=== PATIENT | male | born 1955 | race Caucasian/White ===

== ENCOUNTER 2020-01-11 09:59 | Inpatient (IN) | payer SELFPAY ==
[2020-01-11] MEDS ORDERED: Iopamidol-370 76% 500 ML 1 ML ONE (10:21)
[2020-01-11 10:31] LABS: #Basophils 0.1 thou/uL (0.0-0.2); #Lymphocytes 0.7 thou/uL (1.20-3.40); #Monocytes 1.8 thou/uL (0.11-0.59); #Neutrophils 13.2 thou/uL (1.40-6.50); %Basophils 0.5 % (0.0-1.0); %Eosinophils 0.1 % (0.0-10.0); %Lymphocytes 4.2 % (21.0-51.0); %Monocytes 11.3 % (0.0-10.0); %Neutrophils 84.1 % (42.0-75.0); Hemoglobin 15.1 g/dL (14.0-18.0); Mean Corpuscular HGB CONC 32.8 g/dL (32.0-36.0); Mean Corpuscular Hemoglobin 30.9 pg (27.0-31.0); Mean Corpuscular Volume 94.2 fL (78.0-98.0); Mean Platelet Volume 8.2 fL (7.4-10.4); Platelet Count 123 thou/uL (130-400); RBC Distribution Width 12.1 % (11.5-14.5); Red Blood Cell (RBC) Count 4.89 mill/uL (4.70-6.10); White Blood Cell (WBC) Count 15.7 thou/uL (4.8-10.8)
[2020-01-11 10:47] LABS: ALT (SGPT) 38 U/L (8-55); AST (SGOT) 35 U/L (5-34); Albumin 3.7 g/dL (3.4-4.8); Alkaline Phosphatase 85 U/L (40-110); Anion Gap 15 mmol/L (10-20); BUN (Urea Nitrogen) 10 mg/dL (8.4-25.7); Bilirubin, Total 0.7 mg/dL (0.2-1.2); Calc. Creatinine Clearance 0 mL/min (70-130); Calcium 8.8 mg/dL (7.8-10.44); Carbon Dioxide 21 mmol/L (23-31); Chloride 90 mmol/L (98-107); Estimated GFR-MDRD Greater than 90; Glucose 137 mg/dL (80-115); Potassium 3.1 mmol/L (3.5-5.1); Protein, Total 6.7 g/dL (5.8-8.1); Sodium 123 mmol/L (136-145)
[2020-01-11 11:05] LABS: Bacteria/HPF 4+ HPF (None Seen); Bilirubin Negative (Negative); Blood, Urine 3+ (Negative); Clarity Turbid (Clear); Glucose, Urine (Dipstick) Normal (Negative); Leukocyte 500 Leu/uL (Negative); Nitrite 2+ (Negative); Protein, Urine (Dipstick) 30 mg/dL (Neg-Trace); RBC/HPF 21-50 HPF (0-3); Squamous Epithelial 0-3 HPF (0-3); Urobilinogen Normal mg/dL (Less than 2); WBC/HPF Greater than 50 HPF (0-3)
[2020-01-11] MEDS ORDERED: cefTRIAXone\\ROCEPHIN 1 GM VIAL ONE (11:09)
--- NOTE | 2020-01-11 11:13 | RAD ---
Exam: Chest one view HISTORY:Dysuria with hematuria. Lower abdominal pain. Comparison: 04/19/2014 FINDINGS: Cardiac silhouette: Normal Aorta: Atherosclerosis Pulmonary vessels: Normal Costophrenic angles: Clear LUNGS: Hyperinflation with chronic lung parenchymal changes. Pneumothorax: None Osseous abnormalities: None IMPRESSION: 1. Chronic lung parenchymal changes. Hyperinflation. COPD. 2. Atherosclerosis
[2020-01-11] MEDS ORDERED: Ondansetron PF 4 MG/2 ML Vial ONE (12:12)
[2020-01-11] MEDS ORDERED: Morphine 4 MG/ML VIAL ONE (12:13)
[2020-01-11] MEDS ORDERED: Vancomycin 1 GM/200 ML BAG ONE (12:30)
--- NOTE | 2020-01-11 14:21 | CT ---
EXAM: CT ABDOMEN AND PELVIS HISTORY: Penile pain, starting yesterday. Serious pain across the top of the penis. COMPARISON: None. Procedure: Multiple contiguous axial images were obtained and a CT of the abdomen and pelvis with IV contrast. C oronal reformats were performed. FINDINGS: Lower Chest: within normal limits. Vessels: Atherosclerosis of a nonaneurysmal aorta Heart: Normal heart size. Small amount of pericardial fluid Abdomen: Portal vein:Patent Gallbladder: No calcified gallstones. Normal caliber wall. Liver: Multiple subcentimeter hypodensities which are too small to characterize but may represent cys ts. No enhancing masses within the liver. Pancreas: within normal limits. Spleen: within normal limits. Adrenals: Appropriate enhancement of the right adrenal gland. Indeterminate 1.7 x 1.2 cm solid enhanc ing nodule in the left adrenal gland. Kidneys: Symmetric enhancement. No obstructive uropathy. There is mild symmetric enhancement involvin g the ureters bilaterally. Peritoneum: No ascites or free air, no fluid collection. Bowel: Limited evaluation due to the lack of oral contrast administration. No evidence of bowel obstr uction. Ileocecal junction is unremarkable. Normal caliber appendix. Scattered fecal material in a nondistended, nondilated colon. Diverticulosis. No evidence of diverticulitis. Mesentery and Retroperitoneum: No enlarged mesenteric or retroperitoneal lymph nodes. Abdominal Wall: within normal limits. Pelvis: Reproductive Organs: Mild enlarged prostate gland without significant mass effect upon the urinary bl adder Pelvis: No mass, lymphadenopathy, free air or free fluid. Bladder: Mild mucosal enhancement. Correlate for cystitis with possible retrograde/ascending urinary tract infection Bones: within normal limits. IMPRESSION: 1. Mucosal enhancement involving the urinary bladder as well as ureter suggesting ascending urinary t ract infection. Correlate with urinalysis. No evidence of pyelonephritis. 2. Normal caliber appendix. 3. Diverticulosis, without evidence of diverticulitis 4. Indeterminate left adrenal nodule. Nonemergent abdomen MRI is recommended
[2020-01-11] MEDS ORDERED: Ondansetron PF 4 MG/2 ML Vial IVP PRN (15:11)
[2020-01-11] MEDS ORDERED: Potassium Chloride 20 MEQ TAB PO SCH ×2 (15:15→18:00)
[2020-01-11] MEDS: Sodium Chloride 0.9% 1,000 ML IV SCH (18:06)
[2020-01-11] MEDS: traMADol HCl 50 MG TAB PO PRN (21:27)
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
[2020-01-12] MEDS: Sodium Chloride 0.9% 1,000 ML IV SCH ×4 (02:08→17:35)
[2020-01-12 04:59] LABS: Band 20 % (5-11); Hypochromia SLIGHT = 6-15 cells (100X) (0-5/hpf); Lymphocytes 7 % (21-51); MDiff Complete? YES; Mean Corpuscular HGB CONC 33.4 g/dL (32.0-36.0); Mean Corpuscular Hemoglobin 31.7 pg (27.0-31.0); Mean Corpuscular Volume 94.9 fL (78.0-98.0); Mean Platelet Volume 8.7 fL (7.4-10.4); Monocytes 9 % (0-10); Neutrophil 63 % (42-75); Platelet Count 127 thou/uL (130-400); Platelet Morphology Comment Appears Adequate; RBC Distribution Width 12.4 % (11.5-14.5); Reactive Lymphocytes 1 % (0-10); Red Blood Cell (RBC) Count 4.11 mill/uL (4.70-6.10); White Blood Cell (WBC) Count 12.3 thou/uL (4.8-10.8)
[2020-01-12 05:12] LABS: Anion Gap 12 mmol/L (10-20); BUN (Urea Nitrogen) 9 mg/dL (8.4-25.7); Calc. Creatinine Clearance 118 mL/min (70-130); Calcium 8.3 mg/dL (7.8-10.44); Carbon Dioxide 19 mmol/L (23-31); Chloride 99 mmol/L (98-107); Estimated GFR-MDRD Greater than 90; Glucose 95 mg/dL (80-115); Potassium 3.5 mmol/L (3.5-5.1); Sodium 126 mmol/L (136-145)
[2020-01-12] MEDS: Enoxaparin Sodium 40 MG/0.4 ML SYRINGE SC SCH (08:54)
[2020-01-12] MEDS: traMADol HCl 50 MG TAB PO PRN ×2 (08:54→17:37)
[2020-01-12] MEDS: cefTRIAXone\\ROCEPHIN 2 GM in Sodium Chloride 0.9% 100 ML IVPB SCH (11:17)
--- NOTE | 2020-01-12 14:16 | PDOC.HOSPP ---
- Subjective Encounter Date: 01/12/20 Subjective: Feels better. - Objective Vital Signs & Weight: Vital Signs (12 hours) Temp Pulse Resp BP BP Pulse Ox 01/12/20 12:00 135/85 01/12/20 11:15 98.3 F 91 16 135/85 96 01/12/20 08:47 98.7 F 99 16 146/86 H 95 01/12/20 08:00 146/86 H 95 01/12/20 03:26 98.3 F 103 H 18 132/82 94 L Weight Weight 155 lb 9.6 oz I&O: 01/11/20 01/12/20 01/13/20 06:59 06:59 06:59 Intake Total 2760 Balance 2760 Result Diagrams: 01/12/20 04:11 01/12/20 04:11 Hospitalist ROS - Medication Medications: Active Medications Generic Name Dose Route Start Last Admin Trade Name Freq PRN Reason Stop Dose Admin Enoxaparin Sodium 40 mg 01/12/20 09:00 01/12/20 08:54 Lovenox SC 40 mg 0900 VLADIMIR Administration Sodium Chloride 1,000 mls @ 150 mls/hr 01/11/20 15:15 01/12/20 08:58 Normal Saline 0.9% IV 1,000 mls .[id number] VLADIMIR Administration Ceftriaxone Sodium 2 gm/ 100 mls @ 200 mls/hr 01/12/20 11:00 01/12/20 11:17 Sodium Chloride IVPB 100 mls 1100 VLADIMIR Administration Tramadol HCl 50 mg 01/11/20 15:10 01/12/20 08:54 Ultram PO 50 mg Q6H PRN Administration pain - Exam General Appearance: awake alert ENT: normocephalic atraumatic Neck: supple Heart: RRR Respiratory: normal chest expansion, no tachypnea Extremities: no cyanosis, no clubbing, no edema Neurological: cranial nerve grossly intact, no focal deficits Hosp A/P (1) Sepsis Code(s): A41.9 - SEPSIS, UNSPECIFIED ORGANISM Status: Acute (2) UTI (urinary tract infection) Status: Acute (3) E coli bacteremia Code(s): R78.81 - BACTEREMIA; B96.20 - UNSP ESCHERICHIA COLI THE CAUSE OF DISEASES CLASSD ELSWHR Status: Acute - Plan Sepsis due to UTI caused by E. coli. Bactremia is present. Leukocytosis and pain are improving. Continue IV ceftriaxone and follow culture results.
[2020-01-12 14:23] VITALS: BMI 22.9
[2020-01-13] MEDS: Sodium Chloride 0.9% 1,000 ML IV SCH ×2 (01:06→08:10)
[2020-01-13 04:24] LABS: Band 11 % (5-11); Hemoglobin 12.4 g/dL (14.0-18.0); Lymphocytes 14 % (21-51); MDiff Complete? YES; Mean Corpuscular HGB CONC 33.1 g/dL (32.0-36.0); Mean Corpuscular Hemoglobin 31.5 pg (27.0-31.0); Metamyelocyte 1 % (0-0); Monocytes 18 % (0-10); Neutrophil 56 % (42-75); Platelet Count 149 thou/uL (130-400); Platelet Morphology Comment Appears Adequate; RBC Distribution Width 12.4 % (11.5-14.5); Red Blood Cell (RBC) Count 3.92 mill/uL (4.70-6.10); White Blood Cell (WBC) Count 11.4 thou/uL (4.8-10.8)
[2020-01-13 04:27] LABS: Anion Gap 10 mmol/L (10-20); BUN (Urea Nitrogen) 8 mg/dL (8.4-25.7); Calc. Creatinine Clearance 124 mL/min (70-130); Calcium 7.6 mg/dL (7.8-10.44); Carbon Dioxide 19 mmol/L (23-31); Chloride 101 mmol/L (98-107); Estimated GFR-MDRD Greater than 90; Glucose 84 mg/dL (80-115); Potassium 3.2 mmol/L (3.5-5.1); Sodium 127 mmol/L (136-145)
[2020-01-13 08:17] VITALS: TEMP 97.8
[2020-01-13] MEDS: Enoxaparin Sodium 40 MG/0.4 ML SYRINGE SC SCH (09:26)
[2020-01-13] MEDS: cefTRIAXone\\ROCEPHIN 2 GM in Sodium Chloride 0.9% 100 ML IVPB SCH (12:02)
[2020-01-13 12:18] VITALS: BP 161/96
[2020-01-13 12:34] LABS: HBSAg Index 0.23 S/CO (0-0.99); HIV (1/2) Antibody/Antigen Non-Reactive (NonReactive); Hep B Surf Ag Non-Reactive S/CO (NonReactive)
[2020-01-13 12:37] LABS: Hep C IgG Ab Reflex HepC Qnt (NonReactive); Hep C Index 12.06 S/CO (0-0.79)
--- NOTE | 2020-01-14 05:52 | DIS ---
DATE OF ADMISSION: 01/11/2020 DATE OF DISCHARGE: 01/13/2020 DISCHARGE DIAGNOSES: 1. Sepsis. 2. Urinary tract infection. 3. Escherichia coli bacteremia. DISCHARGE MEDICATIONS: 1. Levofloxacin 750 mg orally daily for 7 days. 2. Atorvastatin 40 mg orally daily. 3. Cilostazol 100 mg orally twice daily. 4. Lisinopril 5 mg orally daily. 5. Tamsulosin 0.4 mg orally daily. HISTORY OF PRESENT ILLNESS AND HOSPITAL COURSE: The patient is a 64-year-old male with past medical history of hypertension, hyperlipidemia, and emphysema, who presented to the hospital with complaints of lower abdominal pain and dysuria. His UA was positive for UTI. He was admitted to the hospital and started on IV antibiotics for UTI with sepsis. His urine and blood cultures grew E. coli sensitive to fluoroquinolones and cephalosporins. He was treated with IV ceftriaxone in the hospital until his sepsis was resolved and the rest of the management will be completed at home with oral Levaquin. Job ID: [id number]
--- NOTE | 2020-01-20 16:39 | EKG ---
Test Reason : Blood Pressure : / mmHG Vent. Rate : 130 BPM Atrial Rate : 130 BPM P-R Int : 132 ms QRS Dur : 092 ms QT Int : 302 ms P-R-T Axes : 076 076 069 degrees QTc Int : 444 ms Sinus tachycardia Possible Left atrial enlargement Septal infarct , age undetermined Possible Lateral infarct , age undetermined Abnormal ECG Confirmed by DANITA CORONEL DO ([id number]), video editor TODD MANJARREZ ([id number] on 01/20/2020 4:39:46 PM Referred By: Confirmed By:DANITA CORONEL DO
[2020-01-21 19:13] LABS: HCV log10 6.029 (.); Hep C PCR-Quant 1070000 IU/mL (.)
== END 2020-01-13 16:05 | disposition home or self-care (01) | DRG 872 ==
LOC: ERS 09:59 → 2NO 15:13
PROVIDERS: ADMIT Internal Medicine; ATTEND Internal Medicine
DX: A41.51 Sepsis due to Escherichia coli [E. coli] (principal); N39.0 Urinary tract infection, site not specified; E78.00 Pure hypercholesterolemia, unspecified; I10 Essential (primary) hypertension; E78.5 Hyperlipidemia, unspecified; J43.9 Emphysema, unspecified; F17.210 Nicotine dependence, cigarettes, uncomplicated; Z88.0 Allergy status to penicillin
CPT/HCPCS: 36415; 71045; 74177; 80048; 80053; 81003; 81015; 83605; 85025; 86803; 87040; 87077; 87086; 87149; 87186; 87340; 87389; 87522; 93005; 96361; 96365; 96375; J0696; J1650; J2270; J2405; J3370; J3490; Q9967

== ENCOUNTER 2022-02-25 11:54 | Outpatient (CLI) | payer MEDICARE, MEDICAID | END 2022-02-25 11:55 | disposition home or self-care (01) | LOC: ULT 11:54 | PROVIDERS: ATTEND Physician Assistant Medical | DX: B18.2 Chronic viral hepatitis C (principal); E87.1 Hypo-osmolality and hyponatremia; F10.20 Alcohol dependence, uncomplicated; R05.9 Cough, unspecified; K76.89 Other specified diseases of liver | CPT/HCPCS: 76705 ==

== ENCOUNTER 2022-05-28 11:32 | Emergency (ER) | payer MEDICARE, MEDICAID ==
[2022-05-28 12:20] LABS: #Eosinphils 0.2 thou/uL (0.0-0.7); #Lymphocytes 1.8 thou/uL (1.20-3.40); #Monocytes 0.6 thou/uL (0.11-0.59); %Basophils 0.6 % (0.0-1.0); %Eosinophils 2.9 % (0.0-10.0); %Lymphocytes 23.8 % (21.0-51.0); %Monocytes 7.6 % (0.0-10.0); %Neutrophils 65.2 % (42.0-75.0); Hemoglobin 16.6 g/dL (14.0-18.0); Mean Corpuscular HGB CONC 33.6 g/dL (32.0-36.0); Mean Corpuscular Hemoglobin 32.3 pg (27.0-31.0); Mean Corpuscular Volume 96.1 fL (78.0-98.0); Mean Platelet Volume 7.4 fL (7.4-10.4); Platelet Count 241 thou/uL (130-400); RBC Distribution Width 12.3 % (11.5-14.5); Red Blood Cell (RBC) Count 5.15 mill/uL (4.70-6.10); White Blood Cell (WBC) Count 7.6 thou/uL (4.8-10.8)
[2022-05-28 12:42] LABS: ALT (SGPT) 14 U/L (8-55); AST (SGOT) 14 U/L (5-34); Albumin 4.3 g/dL (3.4-4.8); Alkaline Phosphatase 93 U/L (40-110); Anion Gap 14 mmol/L (10-20); BUN (Urea Nitrogen) 7 mg/dL (8.4-25.7); Bilirubin, Total 1.1 mg/dL (0.2-1.2); Calc. Creatinine Clearance 0 mL/min (70-130); Calcium 9.6 mg/dL (7.8-10.44); Carbon Dioxide 22 mmol/L (23-31); Chloride 99 mmol/L (98-107); Estimated GFR 96; Glucose 115 mg/dL (80-115); Lipase 13 U/L (8-78); Potassium 4.1 mmol/L (3.5-5.1); Protein, Total 7.3 g/dL (5.8-8.1); Sodium 131 mmol/L (136-145)
[2022-05-28 13:38] LABS: SARS-CoV-2 NAA Rapid Test Not Detected (NotDetected)
== END 2022-05-28 14:14 | disposition home or self-care (01) ==
LOC: ERS 11:32
DX: H53.8 Other visual disturbances (principal); E11.9 Type 2 diabetes mellitus without complications; E78.5 Hyperlipidemia, unspecified; I10 Essential (primary) hypertension; E78.00 Pure hypercholesterolemia, unspecified; F17.210 Nicotine dependence, cigarettes, uncomplicated; Z20.822 Contact with and (suspected) exposure to COVID-19; Z79.84 Long term (current) use of oral hypoglycemic drugs; Z79.899 Other long term (current) drug therapy
CPT/HCPCS: 0240U; 70450; 71045; 80053; 83605; 83690; 84484; 85025; 85379; 87040; 93005; 99284; 36415

== ENCOUNTER 2023-07-29 15:43 | Emergency (ER) | payer MEDICARE, MEDICAID ==
[2023-07-29 16:20] LABS: #Basophils 0.1 thou/uL (0.0-0.2); #Eosinphils 0.1 thou/uL (0.0-0.7); #Monocytes 0.8 thou/uL (0.11-0.59); %Basophils 0.7 % (0.0-1.0); %Eosinophils 1.4 % (0.0-10.0); %Lymphocytes 19.5 % (21.0-51.0); %Monocytes 8.3 % (0.0-10.0); %Neutrophils 69.5 % (42.0-75.0); Hemoglobin 15.5 g/dL (14.0-18.0); Mean Corpuscular HGB CONC 35.2 g/dL (32.0-36.0); Mean Corpuscular Hemoglobin 32.5 pg (27.0-31.0); Mean Corpuscular Volume 92.2 fl (78.0-98.0); Platelet Count 260 10x3/uL (130-400); RBC Distribution Width 12.7 % (11.5-14.5); Red Blood Cell (RBC) Count 4.77 mill/uL (4.70-6.10); White Blood Cell (WBC) Count 10.1 10x3/uL (4.8-10.8)
[2023-07-29 16:48] LABS: Troponin I Less than 0.010 ng/mL (< 0.028)
[2023-07-29 17:39] LABS: Calcium 9.3 mg/dL (7.8-10.44); Chloride 100 mmol/L (98-107); Potassium 4.2 mmol/L (3.5-5.1); Sodium 134 mmol/L (136-145)
[2023-07-29 17:40] LABS: Globulin 3.2 g/dL (2.4-3.5); Glucose 99 mg/dL (80-115); Protein, Total 7.2 g/dL (5.8-8.1)
[2023-07-29 17:42] LABS: Anion Gap 13 mmol/L (10-20); Bilirubin, Total 0.4 mg/dL (0.2-1.2); Carbon Dioxide 25 mmol/L (23-31)
[2023-07-29 17:43] LABS: Alkaline Phosphatase 69 U/L (40-110)
[2023-07-29 17:44] LABS: BUN (Urea Nitrogen) 12 mg/dL (8.4-25.7); Calc. Creatinine Clearance 0 mL/min (70-130); Estimated GFR 100
[2023-07-29 17:45] LABS: AST (SGOT) 15 U/L (5-34)
[2023-07-29 17:46] LABS: ALT (SGPT) 17 U/L (8-55); Lipase 15 U/L (8-78); Magnesium 2.1 mg/dL (1.6-2.6)
[2023-07-29 19:58] LABS: Bacteria/HPF None Seen HPF (None Seen); Bilirubin Negative (Negative); Blood, Urine Negative (Negative); CAUTI Indications for Culture Alt mental st,lethar; Clarity Clear (Clear); Glucose, Urine (Dipstick) Normal (Negative); Ketone, Urine Negative (Negative); Leukocyte Negative Leu/uL (Negative); Nitrite Negative (Negative); Protein, Urine (Dipstick) Negative (Neg-Trace); RBC/HPF 0-3 HPF (0-3); Specific Gravity, Urine 1.014 (1.002-1.036); Squamous Epithelial None Seen HPF (0-3); Urobilinogen Normal mg/dL (Less than 2); WBC/HPF 0-3 HPF (0-3); pH, Urine 6.5 (5.0-9.0)
[2023-07-29 19:59] LABS: Urine Culture Reflex No No
== END 2023-07-29 20:23 | disposition home or self-care (01) ==
LOC: ERS 15:43
DX: Z71.1 Person with feared health complaint in whom no diagnosis is made (principal); E11.9 Type 2 diabetes mellitus without complications; J43.9 Emphysema, unspecified; I10 Essential (primary) hypertension; E78.00 Pure hypercholesterolemia, unspecified; Z79.84 Long term (current) use of oral hypoglycemic drugs; Z79.899 Other long term (current) drug therapy; F17.210 Nicotine dependence, cigarettes, uncomplicated
CPT/HCPCS: 36415; 80053; 81001; 82570; 83690; 83735; 83930; 83935; 84300; 84484; 85025; 93005

== ENCOUNTER 2023-08-06 13:28 | Emergency (ER) | payer MEDICARE, MEDICAID ==
[2023-08-06 15:10] LABS: #Basophils 0.1 thou/uL (0.0-0.2); #Eosinphils 0.1 thou/uL (0.0-0.7); #Monocytes 0.8 thou/uL (0.11-0.59); #Neutrophils 10.6 thou/uL (1.40-6.50); %Basophils 0.7 % (0.0-1.0); %Monocytes 5.9 % (0.0-10.0); Hematocrit 46.1 % (42.0-52.0); Hemoglobin 15.7 g/dL (14.0-18.0); Mean Corpuscular HGB CONC 34.1 g/dL (32.0-36.0); Mean Corpuscular Hemoglobin 32.3 pg (27.0-31.0); Mean Corpuscular Volume 94.9 fl (78.0-98.0); Mean Platelet Volume 9.5 fL (7.4-10.4); Platelet Count 253 10x3/uL (130-400); Red Blood Cell (RBC) Count 4.86 mill/uL (4.70-6.10); White Blood Cell (WBC) Count 13.4 10x3/uL (4.8-10.8)
[2023-08-06 15:39] LABS: Acetaminophen Less than 10 mcg/mL (10.0-30.0); Alcohol Less than 10.0 mg/dL (Less than 10); Magnesium 2.1 mg/dL (1.6-2.6); Salicylate Less than 8.0 mg/dL (15.0-30.0)
[2023-08-06 15:40] LABS: ALT (SGPT) 19 U/L (8-55); AST (SGOT) 20 U/L (5-34); Albumin 4.6 g/dL (3.4-4.8); Alkaline Phosphatase 81 U/L (40-110); Anion Gap 15 mmol/L (10-20); BUN (Urea Nitrogen) 12 mg/dL (8.4-25.7); Bilirubin, Total 0.6 mg/dL (0.2-1.2); Calc. Creatinine Clearance 0 mL/min (70-130); Calcium 9.7 mg/dL (7.8-10.44); Carbon Dioxide 24 mmol/L (23-31); Chloride 100 mmol/L (98-107); Estimated GFR 97; Glucose 89 mg/dL (80-115); Potassium 4.5 mmol/L (3.5-5.1); Protein, Total 7.6 g/dL (5.8-8.1); Sodium 134 mmol/L (136-145)
[2023-08-06 15:43] LABS: Troponin I Less than 0.010 ng/mL (< 0.028)
[2023-08-06 15:58] LABS: Bacteria/HPF None Seen HPF (None Seen); Bilirubin Negative (Negative); Blood, Urine Negative (Negative); CAUTI Indications for Culture Dysuria,urgency,freq; Clarity Clear (Clear); Glucose, Urine (Dipstick) Normal (Negative); Ketone, Urine Negative (Negative); Leukocyte Negative Leu/uL (Negative); Nitrite Negative (Negative); Protein, Urine (Dipstick) Negative (Neg-Trace); RBC/HPF 0-3 HPF (0-3); Specific Gravity, Urine 1.017 (1.002-1.036); Squamous Epithelial 0-3 HPF (0-3); Urobilinogen Normal mg/dL (Less than 2); WBC/HPF 0-3 HPF (0-3); pH, Urine 6.5 (5.0-9.0)
[2023-08-06 16:00] LABS: Urine Culture Reflex No No
== END 2023-08-06 16:51 | disposition home or self-care (01) ==
LOC: ERS 13:28
DX: R42 Dizziness and giddiness (principal); R19.7 Diarrhea, unspecified; E11.9 Type 2 diabetes mellitus without complications; I10 Essential (primary) hypertension; E78.00 Pure hypercholesterolemia, unspecified; F17.210 Nicotine dependence, cigarettes, uncomplicated; Z79.899 Other long term (current) drug therapy
CPT/HCPCS: 36415; 70450; 71045; 80053; 80307; 81001; 83735; 84484; 85025; 93005

== ENCOUNTER 2025-05-10 11:06 | Outpatient (CLI) | payer MEDICARE, MEDICAID | END 2025-05-10 11:07 | disposition home or self-care (01) | LOC: BICCT 11:06 | PROVIDERS: ATTEND Family Medicine | DX: Z12.2 Encounter for screening for malignant neoplasm of respiratory organs (principal); F17.210 Nicotine dependence, cigarettes, uncomplicated; J43.2 Centrilobular emphysema; K76.89 Other specified diseases of liver | CPT/HCPCS: 71271 ==